=== PATIENT | female | born 1990 | race Caucasian/White ===

== ENCOUNTER 2017-05-14 15:27 | Emergency (ER) | payer BC ==
[~2017-05-14] VITALS: Ht 162.6 cm; Wt 79.5 kg
[2017-05-14 15:30] VITALS: TEMP 97.1
[2017-05-14] MEDS ORDERED: ALLEGRA 180MG180 MG PO (15:35)
[2017-05-14] MEDS ORDERED: ZOLOFT 100MG100 MG PO (15:35)
[2017-05-14] MEDS ORDERED: NUVIGIL200 MG PO (15:36)
[2017-05-14 17:06] LABS: BASO % 0.7 % (0.0-2.0); EOS # 0.1 (0.0-0.7); EOS % 2.1 % (0-4.0); GRAN # 3.5 (1.4-6.5); GRAN % 61.8 % (42.2-75.2); HEMATOCRIT 41.6 % (37.0-47.0); HEMOGLOBIN 14.1 g/dl (12.5-16.0); LYMPH # 1.6 (1.2-3.4); LYMPH % 27.9 % (20.0-51.0); MEAN CELL VOLUME 88 fl (80.0-100.0); MEAN CORPUSCULAR HEMOGLOBIN 30 pg (27.0-31.0); MEAN CORPUSCULAR HGB CONC 34 g/dl (33.0-37.0); MEAN PLATELET VOLUME 11.6 fl (7.4-10.4); MONO # 0.4 (0.1-0.6); MONO % 7.3 % (1.7-9.3); PLATELET COUNT 288 K/mm3 (130-400); RED BLOOD COUNT 4.74 M/mm3 (4.10-5.30); WHITE BLOOD COUNT 5.7 K/mm3 (4.8-10.8)
[2017-05-14 17:16] LABS: ADJUSTED CALCIUM 9.1 mg/dL (8.4-10.2); ALBUMIN 4.7 gm/dL (3.5-5.0); BILIRUBIN,TOTAL 0.7 mg/dL (0.0-1.0); CALCIUM 9.7 mg/dL (8.4-10.2); CREATININE, serum 0.71 mg/dL (0.52-1.25); POTASSIUM 4.1 mmol/L (3.4-5.0)
[2017-05-14 18:33] VITALS: BP 95/55; PULSE 70
[2017-05-15] MEDS ORDERED: NORCO 325 MG-51 TAB PO (16:03)
== END 2017-05-14 18:34 | disposition home or self-care (01) ==
LOC: COL.ER 15:27
PROVIDERS: Emergency Medicine
DX: R51 Headache (principal); F32.9 Major depressive disorder, single episode, unspecified; F41.9 Anxiety disorder, unspecified; G47.419 Narcolepsy without cataplexy; Z87.39 Personal history of other diseases of the musculoskeletal system and connective tissue; Z98.818 Other dental procedure status
CPT/HCPCS: J1200; J2550; J7030

== ENCOUNTER 2017-05-15 12:54 | Emergency (ER) | payer BC ==
[~2017-05-15] VITALS: Ht 162.6 cm; Wt 79.5 kg
[~2017-05-15 12:54] MED LIST: ALLEGRA 180MG180 MG PO; NUVIGIL200 MG PO; ZOLOFT 100MG100 MG PO
[2017-05-15 12:58] VITALS: BP 127/74; TEMP 98.1
[2017-05-15 15:37] LABS: CEREBROSPINAL TUBE #1; CEREBROSPINAL TUBE #4; CSF APPEARANCE CLEAR; CSF COLOR COLORLESS
[2017-05-15 15:38] LABS: CSF APPEARANCE CLEAR; CSF COLOR COLORLESS
[2017-05-15] MEDS ORDERED: NORCO 325 MG-51 TAB PO (16:03)
[2017-05-15 16:04] LABS: CSF POLYMORPHONUCLEAR 0 % (0-6)
[2017-05-15 16:05] LABS: CSF POLYMORPHONUCLEAR 0 % (0-6)
[2017-05-15 16:09] VITALS: PULSE 74
== END 2017-05-15 16:10 | disposition home or self-care (01) ==
LOC: COL.ER 12:54
PROVIDERS: Family Medicine
DX: R51 Headache (principal)

== ENCOUNTER → 2018-02-25 | Outpatient (CLI) | payer OTHER ==
[~2018-02-25] MED LIST changes: +NORCO 325 MG-51 TAB PO
== END ==
LOC: COL.RAD 13:04
DX: R10.11 Right upper quadrant pain (principal)

== ENCOUNTER → 2018-06-21 | Outpatient (CLI) | payer OTHER | LOC: COL.VAS 15:45 | DX: M79.605 Pain in left leg (principal); L73.2 Hidradenitis suppurativa ==